=== PATIENT | female | born 1990 | race Caucasian/White ===

== ENCOUNTER 2016-09-18 16:40 | Inpatient (IN) | payer OTHER ==
[~2016-09-18] VITALS: Ht 162.6 cm; Wt 75.4 kg
[~2016-09-18 16:40] MED LIST: ALPR0.25 PO; PANT40TA3 PO
[2016-09-18] MEDS ORDERED: SODIUM CHLORIDE 0.9% 1L BAG IV* STA (16:45)
[2016-09-18] MEDS ORDERED: morphine 4 MG/ML VIAL IV STA ×2 (16:47→18:16)
[2016-09-18] MEDS ORDERED: ONDANSETRON 4 MG INJ IV STA (16:47)
[2016-09-18] MEDS ORDERED: AMPICILLIN/SULB 3 GM/NS (PMX) 100 ML IVPB ONE (17:00)
[2016-09-18] MEDS ORDERED: ACETAMINOPHEN 325 MG TAB PO ONE (17:00)
[2016-09-18 17:11] LABS: BASOPHILS % 0.4 % (0.0-2.0); EOSINOPHILS % 0.2 % (0.0-7.0); HEMATOCRIT 41.7 % (37.0-47.0); HEMOGLOBIN 14.3 g/dl (12.0-16.0); LYMPHOCYTES # 0.6 10^3/ul (0.8-2.9); LYMPHOCYTES % 9.3 % (15.0-51.0); MEAN CORPUSCULAR HEMOGLOBIN 31.5 pg (29.0-33.0); MEAN CORPUSCULAR HGB CONC 34.2 g/dl (32.0-37.0); MEAN CORPUSCULAR VOLUME 91.9 fl (82.0-101.0); MONOCYTE # 0.7 10^3/ul (0.3-0.9); MONOCYTES % 11.1 % (0.0-11.0); NEUTROPHIL # 5.2 10^3/ul (1.6-7.5); PLATELET COUNT 203 10^3/UL (140-440); RED BLOOD COUNT 4.53 10^6/ul (4.20-5.40); RED CELL DISTRIBUTION WIDTH 13.3 % (11.5-14.5); UNCORRECTED WBC 6.6 10^3/ul (4.8-10.8); WHITE BLOOD COUNT 6.6 10^3/ul (4.8-10.8)
[2016-09-18 17:13] LABS: CONDITION 1
[2016-09-18 17:20] LABS: INR 1.08; PARTIAL THROMBOPLASTIN TIME 29.2 Sec (25.0-35.0); PT RATIO 1.1
[2016-09-18 17:23] LABS: ALBUMIN 4.7 g/dl (3.3-4.9); CHLORIDE 105 mmol/L (97-110); POTASSIUM 3.7 mmol/L (3.5-5.1); SODIUM 142 mmol/L (135-144)
[2016-09-18 17:25] LABS: CREATININE 0.69 mg/dl (0.44-1.00)
[2016-09-18 17:26] LABS: ALANINE AMINOTRANSFERASE 57 IU/L (13-69); ALKALINE PHOSPHATASE 61 IU/L (42-121); ANION GAP 20 (8-16); ASPARTATE AMINO TRANSFERASE 33 IU/L (15-46); BILIRUBIN,INDIRECT 0.5 mg/dl (0-1.1); BILIRUBIN,TOTAL 0.5 mg/dl (0.2-1.3); BLOOD UREA NITROGEN 6 mg/dl (7-20); CALCIUM 9.6 mg/dl (8.4-10.2); CARBON DIOXIDE 21 mmol/L (21-31); GLUCOSE 85 mg/dl (70-220); TOTAL PROTEIN 8.3 g/dl (6.1-8.1)
[2016-09-18 17:32] LABS: ADD UMIC YES; URINE BILIRUBIN (Dip) NEGATIVE (NEGATIVE); URINE BLOOD (Dip) TRACE (NEGATIVE); URINE COLOR LT. YELLOW (YELLOW); URINE GLUCOSE (Dip) NEGATIVE (NEGATIVE); URINE KETONES (Dip) 40 (NEGATIVE); URINE LEUKOCYTE ESTERASE (Dip) NEGATIVE (NEGATIVE); URINE NITRITE (Dip) NEGATIVE (NEGATIVE); URINE TOTAL PROTEIN (Dip) NEGATIVE (NEGATIVE); URINE UROBILINOGEN (Dip) 1.0 E.U./dL (0.1-1.0)
--- NOTE | 2016-09-18 17:35 | RADRPT ---
PROCEDURE: XR Chest. CLINICAL INDICATION: Sepsis TECHNIQUE: A single AP view of the chest was obtained. COMPARISON: None. FINDINGS: No focal airspace opacification, pleural effusion or pneumothorax is seen. The cardiomediastinal si lhouette is within normal limits for size. The osseous structures are unremarkable. IMPRESSION: No radiographic evidence of acute cardiopulmonary disease. RPTAT: HH .Krystle Ferguson MD, MD Date Time Electronically viewed and signed by .Krystle Ferguson MD, on 09/18/2016 17:35 .G/
[2016-09-18 17:38] LABS: TROPONIN-I < 0.012 ng/ml (0.00-0.12)
[2016-09-18 17:54] LABS: BACTERIA,URINE RARE; SQUAMOUS EPITHELIAL CELL,UR FEW; URINE RBCS 0-2 /HPF (0)
--- NOTE | 2016-09-18 18:08 | RADRPT ---
PROCEDURE: CT abdomen and pelvis without contrast. CLINICAL INDICATION: Abdominal pain. TECHNIQUE: CT scan of the abdomen and pelvis without contrast was performed on a multislice CT [facility] utilizing axial imaging from the lung bases through the pubis symphysis. The patient was scann ed without intravenous contrast. Sagittal and coronal reformatted images were made. The CTDIvol is 10.55 mGy and the DLP is 525.66 mGycm. COMPARISON: Abdominal ultrasound same date and MR abdomen 07/20/2016 FINDINGS: The lung bases are clear. The heart size is normal. The visualized liver, spleen, pancreas, and patience ateral adrenal glands are normal. The gallbladder is not visualized and correlate with prior cholec ystectomy. The bilateral kidneys are normal. No evidence for hydroureter nephrosis or nephroureterol ithiasis is present. The imaged aorta appears normal. No evidence for ascites or pneumoperitoneum is present. A nonobstructive bowel gas pattern is present. No evidence for diverticulosis, diverticulitis, or a ppendicitis is present. The appendix is normal. The urinary bladder is moderately distended. The uterus and bilateral adnexa appears normal. No pelvic mass, lymphadenopathy, or free fluid is seen. There is no evidence of free air. The surrounding osseous structures are remarkable for a mild grade 1 spondylolisthesis of L4 on L5 w ithout evidence for spondylolysis. IMPRESSION: 1. No evidence for acute intra-abdominal or pelvic pathology. 2. Non-visualized gallbladder 3. Grade 1 spondylolisthesis of L4 and L5 without spondylolysis. RPTAT: HDC .Joann Mccartney MD, Date Time Electronically viewed and signed by .Joann Mccartney MD, MD on 09/18/2016 18:08 .C/
--- NOTE | 2016-09-18 18:09 | RADRPT ---
PROCEDURE: US Abdomen (right upper quadrant). CLINICAL INDICATION: Pain. TECHNIQUE: Multiple real-time longitudinal and transverse images of the right upper quadrant of th e abdomen were acquired utilizing a curved array transducer. Images were reviewed on a high-resoluti on PACS workstation. COMPARISON: CT abdomen 09/18/2016, MRCP 07/20/2016 FINDINGS: The liver is normal in size and echogencity. There is no focal intrahepatic mass.. The gallbladder is not identified. Common bile duct is dilated at 8.26 mm diameter.. Pancreas is obscured by bowel gas. No free fluid is identified. The right kidney measures 9.6. cm in length. There is mild right renal pelvocaliectasis. No mass o r calculus is identified. There is no perinephric fluid collection. IMPRESSION: 1. Status post cholecystectomy. 2. Dilated common bile duct 88 mm, increased from 5.6 mm on the prior MRI of 07/20/2016. 3. Pancreas not visualized due to bowel gas. 4. Mild right renal pelvocaliectasis. RPTAT: HMVK .Marco Ireland MD, Date Time Electronically viewed and signed by .Marco Ireland MD, MD on 09/18/2016 18:09 .K/
[2016-09-18 18:57] VITALS: TEMP 98.3
[2016-09-18] MEDS ORDERED: DOCUSATE SODIUM 100 MG CAP PO PRN (19:00)
[2016-09-18] MEDS ORDERED: NACL 0.9% 3 ML SYG IV SCH (19:00)
[2016-09-18] MEDS ORDERED: ACETAMINOPHEN 650 MG SUPP PR PRN (19:00)
--- NOTE | 2016-09-18 19:05 | HP ---
Date/Time of Note Date/Time of Note DATE: 09/18/16 TIME: 18:55 Assessment/Plan VTE Prophylaxis VTE Prophylaxis Intervention: SCD's Assessment/Plan Assessment/Plan 25 yo female with past medical history of marijuana abuse, bilateral ovarian cyst, PID, GERD, hemorrhoids, with worsening abdominal pain over 1 week duration. 1. Abd pain - most likely due to choledocholithiasis - will admit the patient to med/surg, IV antibiotics, consult surgery/GI, triple phase MRI abdomen, MRCP with possibility of ERCP, pain management, NPO, IV fluids, serial labs 2. GERD. She will be on PPI. 3. Bilateral ovarian cyst. We will obtain a pelvic ultrasound to rule out any acute inflammatory process. 4. Hiatal hernia. Currently patient doesn't have any heartburn or other hernia symptoms. 5. History of hemorrhoids. No present issues. 6. Marijuana abuse. cessation advised 7. Hypernatremia likely secondary to dehydration. Will treat with IV fluids. [place] [facility] [place] prophylaxis: Mario answered all of her questions. as per clinical course. this history and physical took greater then 45 minutes to complete HPI/ROS Admit Date/Time Admit Date/Time 09/18/2016, 6:55 pm Hx of Present Illness 25 yo female with past medical history of marijuana abuse, bilateral ovarian cyst, PID, GERD, hemorrhoids, with worsening abdominal pain over 1 week duration. She states that the pain is in the mid-epigastric region, radiating to the back, 10/10 in nature, associated with > 10 episodes of bilious vomitus and nausea, fevers/chills, pleuritic chest pain, shortness of breath, and fatigue. She has been here multiple times with similar complaints. Otherwise denies any headache, loss of consciousness, diarrhea/constipation or other constitutional symptoms. ED course: unasyn, pain management ROS 14 point review of systems completed, please refer to HPI for any positive findings PMH/Family/Social Past Medical History PID, ovarian cysts, biliary colic Medical History: GERD Past Surgical History Past Surgical Hx: cholecystectomy (questionable) Family History Significant Family History: no pertinent family hx Social History Alcohol Use: none Smoking Status: Never smoker Drug Use: marijuana Exam/Review of Systems Vital Signs Vitals Vital Signs Date Time Temp Pulse Resp B/P Pulse Ox O2 Delivery O2 Flow Rate FiO2 09/18/16 18:15 99.0 85 17 111/64 97 Room Air Exam Exam Gen Flaca: moderate distress 2/2 to abdominal pain, AAOx4 HEENT: NC/AT, PERRLA, EOMI, no pharyngeal erythema, no tonsillar exudates, no lymphadenopathy, no JVD, no carotid bruits NECK: supple, no thyromegaly THORAX: symmetrical, no obvious deformities CV: S1S2, RRR, no M/G/R Lungs: CTAB no W/C/R/R Abd: soft, tenderness to palpation mid-epigastric region, mild guarding, non- distended, normoactive bowel sounds, no HSM EXT: no edema, no ecchymosis, no clubbing, FROM Neuro: CN II-XII grossly intact, no focal deficits Psych: anxious Skin: C/D/I Labs Result Diagram: 09/18/16 1650 09/18/16 1650 Medications Medications Current Medications Sodium Chloride (NS) 1,000 ml @ 75 mls/hr [id number] IV ; Start 09/18/16 at 18:39 Ondansetron HCl (Zofran Inj) 4 mg Q6H PRN IV NAUSEA AND/OR VOMITING; Start at 19:00 Acetaminophen (Tylenol Supp) 650 mg Q6H PRN PA PAIN LEVEL 1-3 OR FEVER; Start 09/18/16 at 19:00 Morphine Sulfate (morphine) 2 mg Q4H PRN IV SEVERE PAIN LEVEL 7-10; Start at 19:00 Docusate Sodium (Colace) 100 mg Q12H PRN PO CONSTIPATION; Start 09/18/16 at 19 :00 Famotidine (Pepcid Iv) 20 mg Q12 IV ; Start 09/18/16 at 21:[address] abd/pelvis IMPRESSION: 1. No evidence for acute intra-abdominal or pelvic pathology. 2. Non-visualized gallbladder 3. Grade 1 spondylolisthesis of L4 and L5 without spondylolysis. Gallbladder US IMPRESSION: 1. Status post cholecystectomy. 2. Dilated common bile duct 88 mm, increased from 5.6 mm on the prior MRI of . 3. Pancreas not visualized due to bowel gas. 4. Mild right renal pelvocaliectasis. CXR IMPRESSION: No radiographic evidence of acute cardiopulmonary disease. BIANKA CASTLE MD Sep 18, 2016 19:05
[2016-09-18] MEDS ORDERED: ONDANSETRON 4 MG INJ IV PRN (19:30)
[2016-09-18] MEDS ORDERED: ACETAMINOPHEN 325 MG TAB PO PRN (19:30)
--- NOTE | 2016-09-18 19:47 | ERA ---
ER Documentation Chief Complaint Date/Time DATE: 09/18/16 TIME: 19:43 Chief Complaint RUQ abdominal pain x 2 days HPI Patient is a 25-year-old female with no medical problems who presents with right -sided abdominal pain and flank pain. The symptoms started 1 week ago and have been coming and going but today they were much worse. She also had fever. She has had nausea but no vomiting. She does have diarrhea. She has had no treatment as of yet today for fever or pain. Upon review of old medical records she did have one previous admission in June for similar. ROS All systems reviewed and are negative except as per history of present illness. Medications Home Meds Discontinued Scripts Alprazolam* (Xanax*) 0.25 Mg Tablet, 0.25 MG PO Q8H Y for ANXIETY, #20 TAB Prov:JUSTICE,NATHANAEL V[employer] 07/22/16 Pantoprazole* (Protonix*) 40 Mg Tablet.dr, 40 MG PO AC BREAKFAST for 30 Days, TAB Prov:JUSTICE,NATHANAEL V[employer] 07/22/16 Allergies Allergies: Coded Allergies: No Known Allergy (Unverified , 09/18/16) PMhx/Soc History of Surgery: Yes (Laproscopic surgery, February) Anesthesia Reaction: No Hx Neurological Disorder: No Hx Respiratory Disorders: No Hx Cardiac Disorders: No Hx Psychiatric Problems: No Hx Miscellaneous Medical Probl: No Hx Alcohol Use: No Hx Substance Use: No Hx Tobacco Use: No Smoking Status: Never smoker FmHx Family History: No diabetes Physical Exam Vitals Vital Signs Date Time Temp Pulse Resp B/P Pulse Ox O2 Delivery O2 Flow Rate FiO2 09/18/16 18:57 98.3 73 18 116/92 98 Nasal Cannula 2.0 09/18/16 18:15 99.0 85 17 111/64 97 Room Air 09/18/16 16:41 102.0 115 20 142/74 100 Physical Exam Const: Moderate distress secondary to pain Head: Atraumatic Eyes: Normal Conjunctiva ENT: Normal External Ears, Nose and Mouth. Neck: Full range of motion..~ No meningismus. Resp: Clear to auscultation bilaterally Cardio: Tachycardic rate without murmur Abd: Soft, right upper quadrant tenderness to palpation without rebound or guarding Skin: No petechiae or rashes Back: No midline or flank tenderness Ext: No cyanosis, or edema Neur: Awake and alert Psych: Normal Mood and Affect Result Diagram: 09/18/16 1650 09/18/16 1650 Results 24 hrs Laboratory Tests Test 09/18/16 16:50 09/18/16 17:00 09/18/16 18:42 Activated Partial Thromboplast Time 29.2Sec Alanine Aminotransferase (ALT/SGPT) 57IU/L Albumin 4.7g/dl Albumin/Globulin Ratio 1.30 Alkaline Phosphatase 61IU/L Anion Gap 20 Aspartate Amino Transf (AST/SGOT) 33IU/L Basophils # 0.010^3/ul Basophils % 0.4% Blood Urea Nitrogen 6mg/dl Calcium Level 9.6mg/dl Carbon Dioxide Level 21mmol/L Chloride Level 105mmol/L Creatinine 0.69mg/dl Direct Bilirubin 0.00mg/dl Eosinophils # 0.010^3/ul Eosinophils % 0.2% Globulin 3.60g/dl Glucose Level 85mg/dl Hematocrit 41.7% Hemoglobin 14.3g/dl INR International Normalized Ratio 1.08 Indirect Bilirubin 0.5mg/dl Lactic Acid Level 1.4mmol/L 0.5mmol/L Lipase 58U/L Lymphocytes # 0.610^3/ul Lymphocytes % 9.3% Mean Corpuscular Hemoglobin 31.5pg Mean Corpuscular Hemoglobin Concent 34.2g/dl Mean Corpuscular Volume 91.9fl Mean Platelet Volume 8.0fl Monocytes # 0.710^3/ul Monocytes % 11.1% Neutrophils # 5.210^3/ul Neutrophils % 79.0% Nucleated Red Blood Cells # 0.010^3/ul Nucleated Red Blood Cells % 0.0/100WBC Platelet Count 76146^3/UL Potassium Level 3.7mmol/L Prothrombin Time 14.0Sec Prothrombin Time Ratio 1.1 Red Blood Count 4.5310^6/ul Red Cell Distribution Width 13.3% Sodium Level 142mmol/L Total Bilirubin 0.5mg/dl Total Protein 8.3g/dl Troponin I < 0.012ng/ml White Blood Count 6.610^3/ul Urine Bacteria RARE Urine Bilirubin NEGATIVE Urine Clarity CLEAR Urine Color LT. YELLOW Urine Glucose NEGATIVE% Urine Hemoglobin TRACE Urine Ketones 40 Urine Leukocyte Esterase NEGATIVE Urine Microscopic RBC 0-2/HPF Urine Microscopic WBC 0-2/HPF Urine Nitrite NEGATIVE Urine Specific [place] 1.020 Urine Squamous Epithelial Cells FEW Urine Total Protein NEGATIVE Urine Urobilinogen 1.0 E.U./dL Urine pH 7.0 Current Medications Medications (Trade) Dose Ordered Sig/Pierce Route PRN Reason Start Time Stop Time Status Last Admin Dose Admin Sodium Chloride 2110 ml 2,110 ml BOLUS OVER 2 HOURS STAT IV* 09/18/16 16:45 09/18/16 16:48 DC 09/18/16 17:02 Ampicillin Sodium/ Sulbactam Sodium (Unasyn 3gm/NS (Pmx)) 100 ml @ 100 mls/hr ONCE ONCE IVPB 09/18/16 17:00 09/18/16 17:59 DC 09/18/16 17:17 Acetaminophen (Tylenol Tab) 650 mg ONCE ONCE PO 09/18/16 17:00 09/18/16 17:01 DC 09/18/16 17:03 Morphine Sulfate (morphine) 4 mg ONCE STAT IV 09/18/16 16:47 09/18/16 16:48 DC 09/18/16 17:03 Ondansetron HCl (Zofran Inj) 4 mg ONCE STAT IV 09/18/16 16:47 09/18/16 16:48 DC 09/18/16 17:03 Morphine Sulfate 4 mg 4 mg ONCE STAT IV 09/18/16 18:16 09/18/16 18:17 DC 09/18/16 18:20 Sodium Chloride (NS) 1,000 ml @ 75 mls/hr [id number] IV 09/18/16 18:39 IV Flush (NS 3 ml) 3 ml PER PROTOCOL IV 09/18/16 19:00 Ondansetron HCl (Zofran Inj) 4 mg Q6H PRN IV NAUSEA AND/OR VOMITING 09/18/16 19:00 Acetaminophen (Tylenol Supp) 650 mg Q6H PRN PA PAIN LEVEL 1-3 OR FEVER 09/18/16 19:00 Morphine Sulfate (morphine) 2 mg Q4H PRN IV SEVERE PAIN LEVEL 7-10 09/18/16 19:00 Docusate Sodium (Colace) 100 mg Q12H PRN PO CONSTIPATION 09/18/16 19:00 Famotidine (Pepcid Iv) 20 mg Q12 IV 09/18/16 21:00 Ondansetron HCl (Zofran Inj) 4 mg BRIDGE ORDER PRN IV NAUSEA AND/OR VOMITING 09/18/16 19:30 09/19/16 19:29 Acetaminophen (Tylenol Tab) 650 mg ER BRIDGE PRN PO MILD PAIN/FEVER 09/18/16 19:30 09/19/16 19:29 Procedures/MDM EKG read by me: Rate/Rhythm: Sinus tachycardia rate of 103 Intervals: Normal Impression: Sinus tachycardia without evidence of ischemia Chest x-ray shows no pneumonia per radiology. Ultrasound shows dilated common bile duct but no gallbladder seen per radiology. CT scan shows no gallbladder or surgical process per radiology. Patient is a 25-year-old female who presents with right upper quadrant abdominal pain and abdominal pain. At this point there is no sign of obvious infection. She does have two SIRS criteria and was given Tylenol and normal saline fluid bolus of 30 ml/kg and now her vital signs have normalized. Her initial lactic acid is normal as is a repeat lactic acid at this point I doubt sepsis. She has had a significant workup in the past for potential cholecystitis including laparoscopy, MRI of the abdomen, and CT scan as well as ultrasound which did not show any gallbladder even though she has not had her gallbladder removed in the past. Given her significant pain I do believe she requires admission for pain control and further evaluation of her fever. Cultures are pending. At this point there are no signs of cystitis or pneumonia. I spoke with Dr. Garnica from the panel team for admission who will admit to a medical surgical bed. I also spoke with Dr. Zamora from surgery he did her laparoscopy but he is out of town and unavailable and therefore I spoke with Dr. Mena the surgeon on-call who is willing to see the patient for further treatment and evaluation. He has recommended MRCP and MRI of the abdomen triple phase which I have relayed to Dr. Garnica. Departure Diagnosis: Primary Impression: SIRS (systemic inflammatory response syndrome) Additional Impressions: Flank pain Abdominal pain Qualified Code: R10.11 - Right upper quadrant abdominal pain Condition: DONTE Ramey MD Sep 18, 2016 19:47
[2016-09-18 20:15] VITALS: BP 107/55; PULSE 91; RESP 18
[2016-09-18] MEDS: SOD CHLORIDE 0.9% 1,000 ML IV SCH (20:53)
[2016-09-18] MEDS: FAMOTIDINE 20 MG INJ IV SCH (20:55)
[2016-09-18] MEDS: morphine 2 MG INJ IV PRN (20:55)
[2016-09-18 21:00] VITALS: Ht 162.6 cm; Wt 75.4 kg
--- NOTE | 2016-09-18 21:49 | CONS ---
Date/Time of Note Date/Time of Note DATE: 09/18/16 TIME: 21:37 Assessment/Plan Assessment/Plan Chief Complaint/Hosp Course Impression and Recommendations: 1. Abd pain - unclear what the etiology is. U/S, CT do not show CBD stone. Also do not show gallbladder but patient adamant that she did not have cholecystectomy. Interestingly, Dr. Zamora did diagnostic laparoscopy and did not see gallbladder. Will need to consider non-GI causes of her abdominal pain such as ovarian cyst, abdominal wall pain. Also will need to consider functional abdominal pain. - f/u triple phase MRI abdomen, MRCP - patient wants ERCP but I explained to pt that we need to do non-invasive tests first before invasive test. I just don't want the same situation as before where Dr. Zamora did surgery for cholecystectomy and turns out there is no gallbladder (which is another odd issue why there is no gallbladder and imaging studies indicate prior cholecystectomy yet pt denies h/o cholecystectomy). 2. GERD. - continue H2 janny. If pain persists, will consider changing to PPI. 3. Bilateral ovarian cyst. - consider Roofing [employer]ator eval and consult - obtain a pelvic ultrasound to rule out any acute inflammatory process. 4. Marijuana abuse. I wonder if it is Marijuana associated cyclic vomiting syndrome. Problems: Consultation Date/Type/Reason Admit Date/Time 09/18/2016, 6:55 pm Type of Consultation: GI Hx of Present Illness 25 yo female with past medical history of marijuana abuse, bilateral ovarian cyst, PID, GERD, hemorrhoids, with worsening abdominal pain over 1 week duration. She states that the pain is in the mid-epigastric and right sided region, radiating to the back and chest, 10/10 in nature, associated with > 10 episodes of bilious vomitus and nausea, fevers/chills, pleuritic chest pain, shortness of breath, and fatigue. She has been here multiple times with similar complaints. In discussing with patient, she had ex lap by Dr. Zamora who did not see a gallbladder. CT and U/S also did not reveal gallbladder. However, pt insist that she did not have a cholecystectomy. She also had EGD and colonoscopy by another GI MD but patient did not like that GI MD at [facility]. Patient want another surgeon and GI specialist to evaluate her. Denies any headache, loss of consciousness, diarrhea/constipation or other constitutional symptoms. All point ROS administered, pertinent positives and negatives in HPI otherwise negative. Past Medical History Medical History: GERD, other (ovarian cyst, PID, hemorrhoids) Past Surgical History Past Surgical Hx: cholecystectomy (questionable) Family History Significant Family History: no pertinent family hx Social History Alcohol Use: none Smoking Status: Never smoker Drug Use: marijuana Exam/Review of Systems Vital Signs Vitals Vital Signs Date Time Temp Pulse Resp B/P Pulse Ox O2 Delivery O2 Flow Rate FiO2 09/18/16 19:49 81 18 122/84 97 Room Air 09/18/16 18:57 98.3 2.0 Exam Constitutional: alert, oriented, well developed Psych: anxiety Head: atraumatic, normocephalic Eyes: EOMI, nl conjunctiva, nl lids, nl sclera ENMT: mucosa pink and moist, nl external ears & nose, nl lips & teeth, nl nasal mucosa & septum Neck: non-tender, supple Respiratory: clear to auscultation, normal air movement Cardiovascular: nl pulses, regular rate and rhythm Gastrointestinal: bowel sounds, non-tender, soft Neurological: nl mental status, nl speech, nl strength Results Result Diagram: 09/18/16164909/18/161649 Results 24 hrs Laboratory Tests Test 09/18/16 16:50 09/18/16 17:00 09/18/16 18:42 Activated Partial Thromboplast Time 29.2 Alanine Aminotransferase (ALT/SGPT) 57 Albumin 4.7 Albumin/Globulin Ratio 1.30 Alkaline Phosphatase 61 Anion Gap 20 H Aspartate Amino Transf (AST/SGOT) 33 Basophils # 0.0 Basophils % 0.4 Blood Urea Nitrogen 6 L Calcium Level 9.6 Carbon Dioxide Level 21 Chloride Level 105 Creatinine 0.69 Direct Bilirubin 0.00 Eosinophils # 0.0 Eosinophils % 0.2 Globulin 3.60 H Glucose Level 85 Hematocrit 41.7 Hemoglobin 14.3 INR International Normalized Ratio 1.08 Indirect Bilirubin 0.5 Lactic Acid Level 1.4 0.5 Lipase 58 Lymphocytes # 0.6 L Lymphocytes % 9.3 L Mean Corpuscular Hemoglobin 31.5 Mean Corpuscular Hemoglobin Concent 34.2 Mean Corpuscular Volume 91.9 Mean Platelet Volume 8.0 Monocytes # 0.7 Monocytes % 11.1 H Neutrophils # 5.2 Neutrophils % 79.0 H Nucleated Red Blood Cells # 0.0 Nucleated Red Blood Cells % 0.0 Platelet Count 203 Potassium Level 3.7 Prothrombin Time 14.0 Prothrombin Time Ratio 1.1 Red Blood Count 4.53 Red Cell Distribution Width 13.3 Sodium Level 142 Total Bilirubin 0.5 Total Protein 8.3 H Troponin I < 0.012 White Blood Count 6.6 Urine Bacteria RARE Urine Bilirubin NEGATIVE Urine Clarity CLEAR Urine Color LT. YELLOW Urine Glucose NEGATIVE Urine Hemoglobin TRACE Urine Ketones 40 Urine Leukocyte Esterase NEGATIVE Urine Microscopic RBC 0-2 Urine Microscopic WBC 0-2 Urine Nitrite NEGATIVE Urine Specific [place] 1.020 Urine Squamous Epithelial Cells FEW Urine Total Protein NEGATIVE Urine Urobilinogen 1.0 E.U./dL Urine pH 7.0 Medications Medications Current Medications Sodium Chloride (NS) 1,000 ml @ 75 mls/hr [id number] IV Last administered on at 20:53; Admin Dose 75 MLS/HR; Start 09/18/16 at 18:39 Ondansetron HCl (Zofran Inj) 4 mg Q6H PRN IV NAUSEA AND/OR VOMITING; Start at 19:00 Acetaminophen (Tylenol Supp) 650 mg Q6H PRN [place] PAIN LEVEL 1-3 OR FEVER; Start 09/18/16 at 19:00 Morphine Sulfate (morphine) 2 mg Q4H PRN IV SEVERE PAIN LEVEL 7-10 Last administered on 09/18/16at 20:55; Admin Dose 2 MG; Start 09/18/16 at 19:00 Docusate Sodium (Colace) 100 mg Q12H PRN PO CONSTIPATION; Start 09/18/16 at 19 :00 Famotidine (Pepcid Iv) 20 mg Q12 IV Last administered on 09/18/16at 20:55; Admin Dose 20 MG; Start 09/18/16 at 21:00 BON GARCIA MD Sep 18, 2016 21:48
[2016-09-19] MEDS: morphine 2 MG INJ IV PRN ×4 (01:49→21:48)
[2016-09-19] MEDS: ONDANSETRON 4 MG INJ IV PRN ×2 (01:49→08:28)
[2016-09-19 05:16] LABS: BASOPHILS % 0.3 % (0.0-2.0); EOSINOPHILS % 0.2 % (0.0-7.0); HEMATOCRIT 35.5 % (37.0-47.0); HEMOGLOBIN 12.5 g/dl (12.0-16.0); LYMPHOCYTES # 0.6 10^3/ul (0.8-2.9); LYMPHOCYTES % 11.5 % (15.0-51.0); MEAN CORPUSCULAR HEMOGLOBIN 32.2 pg (29.0-33.0); MEAN CORPUSCULAR HGB CONC 35.1 g/dl (32.0-37.0); MEAN CORPUSCULAR VOLUME 91.7 fl (82.0-101.0); MEAN PLATELET VOLUME 8.3 fl (7.4-10.4); MONOCYTE # 0.7 10^3/ul (0.3-0.9); MONOCYTES % 14.9 % (0.0-11.0); NEUTROPHIL # 3.6 10^3/ul (1.6-7.5); NEUTROPHILS % 73.1 % (39.0-77.0); PLATELET COUNT 171 10^3/UL (140-440); RED BLOOD COUNT 3.87 10^6/ul (4.20-5.40); RED CELL DISTRIBUTION WIDTH 13.3 % (11.5-14.5); UNCORRECTED WBC 4.9 10^3/ul (4.8-10.8); WHITE BLOOD COUNT 4.9 10^3/ul (4.8-10.8)
[2016-09-19 05:33] LABS: ALBUMIN 3.6 g/dl (3.3-4.9)
[2016-09-19 05:34] LABS: POTASSIUM 3.8 mmol/L (3.5-5.1)
[2016-09-19 05:36] LABS: ALBUMIN/GLOBULIN RATIO 1.2; BILIRUBIN,INDIRECT 0.4 mg/dl (0-1.1); BILIRUBIN,TOTAL 0.4 mg/dl (0.2-1.3); CREATININE 0.57 mg/dl (0.44-1.00); TOTAL PROTEIN 6.6 g/dl (6.1-8.1)
[2016-09-19 05:37] LABS: CALCIUM 8.2 mg/dl (8.4-10.2); MAGNESIUM 1.7 mg/dl (1.7-2.5)
[2016-09-19 06:38] LABS: CONDITION 1
[2016-09-19] MEDS: SOD CHLORIDE 0.9% 1,000 ML IV SCH ×2 (07:44→10:17)
[2016-09-19 07:52] VITALS: BP 118/76; RESP 19
[2016-09-19] MEDS: FAMOTIDINE 20 MG INJ IV SCH ×2 (10:14→20:49)
--- NOTE | 2016-09-19 10:55 | PN ---
Date/Time of Note Date/Time of Note DATE: 09/19/16 TIME: 10:51 Assessment/Plan VTE Prophylaxis VTE Prophylaxis Intervention: SCD's Lines/Catheters IV Catheter Type (from [facility]): Peripheral IV Urinary Cath still in place: No Assessment/Plan Assessment/Plan 25 yo female with past medical history of marijuana abuse, bilateral ovarian cyst, PID, GERD, hemorrhoids, with worsening abdominal pain over 1 week duration. 1. Abd pain - most likely due to choledocholithiasis - appreciate consult surgery/GI, triple phase MRI abdomen, MRCP with possibility of ERCP, pain management, NPO, IV fluids, serial labs, reglan 2. GERD. She will be on PPI. 3. Bilateral ovarian cyst. We will obtain a pelvic ultrasound to rule out any acute inflammatory process. 4. Hiatal hernia. Currently patient doesn't have any heartburn or other hernia symptoms. 5. History of hemorrhoids. No present issues. 6. Marijuana abuse. cessation advised 7. Hypernatremia likely secondary to dehydration. Will treat with IV fluids. DVT prophylaxis: SCDs PUD prophylaxis: Pepcid dispo - as per clinical course. MRI triple phase/MRCP needed. f/u recs this progress note took greater than 40 minutes to complete Subjective 24 Hr Interval Summary Free Text/Dictation Patient admitted overnight for having acute abdominal pain. Has worsening nausea , not relieved by zofran. No fevers or chills. Spoke to the patient about the care plan. 20 minutes spent. Exam/Review of Systems Vital Signs Vitals Vital Signs Date Time Temp Pulse Resp B/P Pulse Ox O2 Delivery O2 Flow Rate FiO2 09/19/16 07:52 98.5 56 19 118/76 95 09/18/16 20:15 Room Air 09/18/16 18:57 2.0 Intake and Output 09/18/16 09/18/16 09/19/16 15:00 23:00 07:00 Intake Total 675 ml Balance 675 ml Exam Gen Flaca: moderate distress 2/2 to abdominal pain and nausea, AAOx4 HEENT: NC/AT, PERRLA, EOMI, no pharyngeal erythema, no tonsillar exudates, no lymphadenopathy, no JVD, no carotid bruits NECK: supple, no thyromegaly THORAX: symmetrical, no obvious deformities CV: S1S2, RRR, no M/G/R Lungs: CTAB no W/C/R/R Abd: soft, tenderness to palpation mid-epigastric region, mild guarding, non- distended, normoactive bowel sounds, no HSM EXT: no edema, no ecchymosis, no clubbing, FROM Neuro: CN II-XII grossly intact, no focal deficits Psych: sad Skin: C/D/I Results Result Diagram: 09/19/16 0424 09/19/16 0424 Results 24 hrs Laboratory Tests Test 09/18/16 16:50 09/18/16 17:00 09/18/16 18:42 09/18/16 20:50 Activated Partial Thromboplast Time 29.2 Alanine Aminotransferase (ALT/SGPT) 57 Albumin 4.7 Albumin/Globulin Ratio 1.30 Alkaline Phosphatase 61 Anion Gap 20 H Aspartate Amino Transf (AST/SGOT) 33 Basophils # 0.0 Basophils % 0.4 Blood Urea Nitrogen 6 L Calcium Level 9.6 Carbon Dioxide Level 21 Chloride Level 105 Creatinine 0.69 Direct Bilirubin 0.00 Eosinophils # 0.0 Eosinophils % 0.2 Globulin 3.60 H Glucose Level 85 Hematocrit 41.7 Hemoglobin 14.3 INR International Normalized Ratio 1.08 Indirect Bilirubin 0.5 Lactic Acid Level 1.4 0.5 0.7 Lipase 58 Lymphocytes # 0.6 L Lymphocytes % 9.3 L Mean Corpuscular Hemoglobin 31.5 Mean Corpuscular Hemoglobin Concent 34.2 Mean Corpuscular Volume 91.9 Mean Platelet Volume 8.0 Monocytes # 0.7 Monocytes % 11.1 H Neutrophils # 5.2 Neutrophils % 79.0 H Nucleated Red Blood Cells # 0.0 Nucleated Red Blood Cells % 0.0 Platelet Count 203 Potassium Level 3.7 Prothrombin Time 14.0 Prothrombin Time Ratio 1.1 Red Blood Count 4.53 Red Cell Distribution Width 13.3 Sodium Level 142 Total Bilirubin 0.5 Total Protein 8.3 H Troponin I < 0.012 White Blood Count 6.6 Urine Bacteria RARE Urine Bilirubin NEGATIVE Urine Clarity CLEAR Urine Color LT. YELLOW Urine Glucose NEGATIVE Urine Hemoglobin TRACE Urine Ketones 40 Urine Leukocyte Esterase NEGATIVE Urine Microscopic RBC 0-2 Urine Microscopic WBC 0-2 Urine Nitrite NEGATIVE Urine Specific [place] 1.020 Urine Squamous Epithelial Cells FEW Urine Total Protein NEGATIVE Urine Urobilinogen 1.0 E.U./dL Urine pH 7.0 Test 1/1/17 04:24 Alanine Aminotransferase (ALT/SGPT) 336 H Albumin 3.6 # Albumin/Globulin Ratio 1.20 Alkaline Phosphatase 103 # Anion Gap 17 H Aspartate Amino Transf (AST/SGOT) 342 H Basophils # 0.0 Basophils % 0.3 Blood Urea Nitrogen 4 L Calcium Level 8.2 L Carbon Dioxide Level 20 L Chloride Level 107 Creatinine 0.57 Direct Bilirubin 0.00 Eosinophils # 0.0 Eosinophils % 0.2 Globulin 3.00 Glucose Level 79 Hematocrit 35.5 L Hemoglobin 12.5 Indirect Bilirubin 0.4 Lymphocytes # 0.6 L Lymphocytes % 11.5 L Magnesium Level 1.7 Mean Corpuscular Hemoglobin 32.2 Mean Corpuscular Hemoglobin Concent 35.1 Mean Corpuscular Volume 91.7 Mean Platelet Volume 8.3 Monocytes # 0.7 Monocytes % 14.9 H Neutrophils # 3.6 Neutrophils % 73.1 Nucleated Red Blood Cells # 0.0 Nucleated Red Blood Cells % 0.0 Platelet Count 171 Potassium Level 3.8 Red Blood Count 3.87 L Red Cell Distribution Width 13.3 Sodium Level 140 Total Bilirubin 0.4 Total Protein 6.6 # White Blood Count 4.9 # Medications Medications Current Medications Sodium Chloride (NS) 1,000 ml @ 75 mls/hr [id number] IV Last administered on 10:17; Admin Dose 75 MLS/HR; Start 09/18/16 at 18:39 Ondansetron HCl (Zofran Inj) 4 mg Q6H PRN IV NAUSEA AND/OR VOMITING Last administered on 09/19/16 08:28; Admin Dose 4 MG; Start 09/18/16 at 19:00 Acetaminophen (Tylenol Supp) 650 mg Q6H PRN [place] PAIN LEVEL 1-3 OR FEVER; Start 09/18/16 at 19:00 Morphine Sulfate (morphine) 2 mg Q4H PRN IV SEVERE PAIN LEVEL 7-10 Last administered on 09/19/16 07:38; Admin Dose 2 MG; Start 09/18/16 at 19:00 Docusate Sodium (Colace) 100 mg Q12H PRN PO CONSTIPATION; Start 09/18/16 at 19 :00 Famotidine (Pepcid Iv) 20 mg Q12 IV Last administered on 09/19/16 10:14; Admin Dose 20 MG; Start 09/18/16 at 21:00 BIANKA CASTLE MD Sep 19, 2016 10:55
[2016-09-19] MEDS ORDERED: METOCLOPRAMIDE 10 MG INJ IV PRN (11:00)
[2016-09-19 11:56] LABS: HAAIG REFLEX REFLEX FILED
[2016-09-19 13:36] LABS: HEPATITIS B CORE ANTIBODY NEGATIVE (NEGATIVE)
--- NOTE | 2016-09-19 17:38 | CONS ---
Date/Time of Note Date/Time of Note DATE: 09/19/16 TIME: 17:34 Assessment/Plan Assessment/Plan Chief Complaint/Hosp Course Impression and Recommendations: 1. Abd pain - improving as she feels hungry and wants to eat. U/S, CT do not show CBD stone. Also do not show gallbladder but patient adamant that she did not have cholecystectomy. Interestingly, Dr. Zamora did diagnostic laparoscopy and did not see gallbladder. Will need to consider non-GI causes of her abdominal pain such as ovarian cyst, abdominal wall pain. Also will need to consider functional abdominal pain. - f/u triple phase MRI abdomen, MRCP - patient wants ERCP but I explained to pt that we need to do non-invasive tests first before invasive test. I just don't want the same situation as before where Dr. Zamora did surgery for cholecystectomy and turns out there is no gallbladder (which is another odd issue why there is no gallbladder and imaging studies indicate prior cholecystectomy yet pt denies h/o cholecystectomy). - advance diet to clears. 2. GERD. - continue H2 janny. If pain persists, will consider changing to PPI. 3. Bilateral ovarian cyst. - consider Cut Off Tender Glass eval and consult - obtain a pelvic ultrasound to rule out any acute inflammatory process. 4. Marijuana abuse. I wonder if it is Marijuana associated cyclic vomiting syndrome. Problems: Consultation Date/Type/Reason Admit Date/Time Sep 18, 2016 at 19:02 Initial Consult Date Type of Consultation: GI 24 HR Interval Summary Free Text/Dictation still awaiting MRCP and triple phase CT. Nausea and pain improves with morphine. She feels hungry. Constitutional: improved Exam/Review of Systems Vital Signs Vitals Vital Signs Date Time Temp Pulse Resp B/P Pulse Ox O2 Delivery O2 Flow Rate FiO2 09/19/16 07:52 98.5 56 19 118/76 95 09/18/16 20:15 Room Air 09/18/16 18:57 2.0 Intake and Output 09/18/16 09/18/16 09/19/16 15:00 23:00 07:00 Intake Total 675 ml Balance 675 ml Exam Constitutional: alert, oriented, well developed Psych: nl mood/affect, no complaints Head: atraumatic, normocephalic Eyes: EOMI, nl conjunctiva, nl lids, nl sclera ENMT: mucosa pink and moist, nl external ears & nose, nl lips & teeth, nl nasal mucosa & septum Neck: non-tender, supple Respiratory: clear to auscultation, normal air movement Cardiovascular: nl pulses, regular rate and rhythm Gastrointestinal: bowel sounds, nl liver, spleen, soft, tender (diffusely, no R /G) Results Result Diagram: 09/19/16 0424 09/19/16 0424 Results 24 hrs Laboratory Tests Test 09/18/16 18:42 09/18/16 20:50 09/19/16 04:24 09/19/16 11:33 Lactic Acid Level 0.5 0.7 Alanine Aminotransferase (ALT/SGPT) 336 H Albumin 3.6 # Albumin/Globulin Ratio 1.20 Alkaline Phosphatase 103 # Anion Gap 17 H Aspartate Amino Transf (AST/SGOT) 342 H Basophils # 0.0 Basophils % 0.3 Blood Urea Nitrogen 4 L Calcium Level 8.2 L Carbon Dioxide Level 20 L Chloride Level 107 Creatinine 0.57 Direct Bilirubin 0.00 Eosinophils # 0.0 Eosinophils % 0.2 Globulin 3.00 Glucose Level 79 Hematocrit 35.5 L Hemoglobin 12.5 Indirect Bilirubin 0.4 Lymphocytes # 0.6 L Lymphocytes % 11.5 L Magnesium Level 1.7 Mean Corpuscular Hemoglobin 32.2 Mean Corpuscular Hemoglobin Concent 35.1 Mean Corpuscular Volume 91.7 Mean Platelet Volume 8.3 Monocytes # 0.7 Monocytes % 14.9 H Neutrophils # 3.6 Neutrophils % 73.1 Nucleated Red Blood Cells # 0.0 Nucleated Red Blood Cells % 0.0 Platelet Count 171 Potassium Level 3.8 Red Blood Count 3.87 L Red Cell Distribution Width 13.3 Sodium Level 140 Total Bilirubin 0.4 Total Protein 6.6 # White Blood Count 4.9 # Hepatitis B Core Total Antibody NEGATIVE Hepatitis B Surface Antigen NEGATIVE Hepatitis C Antibody NEGATIVE Medications Medications Current Medications Sodium Chloride (NS) 1,000 ml @ 75 mls/hr [id number] IV Last administered on 10:17; Admin Dose 75 MLS/HR; Start 09/18/16 at 18:39 Ondansetron HCl (Zofran Inj) 4 mg Q6H PRN IV NAUSEA AND/OR VOMITING Last administered on 09/19/16 08:28; Admin Dose 4 MG; Start 09/18/16 at 19:00 Acetaminophen (Tylenol Supp) 650 mg Q6H PRN [place] PAIN LEVEL 1-3 OR FEVER; Start 09/18/16 at 19:00 Morphine Sulfate (morphine) 2 mg Q4H PRN IV SEVERE PAIN LEVEL 7-10 Last administered on 09/19/16 15:58; Admin Dose 2 MG; Start 09/18/16 at 19:00 Docusate Sodium (Colace) 100 mg Q12H PRN PO CONSTIPATION; Start 09/18/16 at 19 :00 Famotidine (Pepcid Iv) 20 mg Q12 IV Last administered on 09/19/16 10:14; Admin Dose 20 MG; Start 09/18/16 at 21:00 Metoclopramide HCl (Reglan) 10 mg Q6H PRN IV nausea; Start 09/19/16 at 11:00 BON GARCIA MD Sep 19, 2016 17:38
--- NOTE | 2016-09-19 18:11 | CONS ---
[facility] INITIAL INPATIENT CONSULTATION NOTE PLACE OF SERVICE: [facility], second floor, Mindy Bowman 09/2016. DATE OF ADMISSION: 09/18/2016 DATE OF CONSULTATION: 09/19/2016 ASSESSMENT AND PLAN: A very pleasant 25-year-old young lady with some co- morbid issues including BMI 28.5 as well as nightly use of marijuana, who has been plagued by abdominal symptoms since 10/2015. 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 I very carefully reviewed the MRCP from 07/2016 as well as her current ultrasound and CT scan that was done on 09/18/2016, and I agree that we do not see an obvious structure that we can call gallbladder. We are awaiting an MRI of the liver with contrast as well as MRCP to further image this area. I certainly do not see any indication for surgical intervention, but the patient may require an ERCP for further delineation of her symptoms. If no intervenable etiology is found, then we can continue aggressively counseling the patient regarding cessation of marijuana use since this substance can certainly lead to cyclic vomiting syndrome. It does not, however, explain the patient's temperature and for this reason, we should stay aggressive in terms of the workup. I explained all of this to the patient and her , who appear to understand and agree with the plan. With the above assessment, I recommend the followin. MRCP as well as a liver-dedicated triple phase MRI of the abdomen. 2. Agree with consultation with gastroenterology. 3. Consideration for ERCP if indicated. 4. Continue treating symptoms. 5. Strong counseling regarding cessation of marijuana use. 6. Keep in-house. 7. I will continue to follow the patient along with you closely. Thank you again for allowing us to participate in the care of this very pleasant lady and her wonderful family. If there are any questions, please feel free to call me at [phone]. TOTAL VISIT TIME: 60 minutes of which more than half was spent in [id number] discussion with the patient, discussions with her , as well as coordination of care between multiple physicians and providers. HISTORY OF PRESENT ILLNESS: The patient is a very pleasant 25-year-old young lady with co-morbid issues of BMI of 28.5, marijuana use on a daily basis, prior history of attempt at laparoscopic cholecystectomy summer with an interesting finding of absent gallbladder versus intrahepatic gallbladder, and further workup with MRCP that was done 07/2016, again showing lack of a gallbladder, who was admitted with abdominal pain and nausea and vomiting. Patient describes her symptoms starting in October 2015 when she was diagnosed with gallstone disease at [facility] and then another evaluation at [facility] again confirmed presence of gallstone disease. She was taken to the operating room in the summer as mentioned above, but no gallbladder was found, and the operation was aborted. She has had ongoing issues with nausea and vomiting and multiple visits to the emergency room and the hospital in the [facility] without obvious alleviating interventions. Similar issues have been going on over the last few days, and for this reason, she was readmitted to the hospital. No blood in the stool or urine. No blood in the emesis. The patient does have recurrent chest pains as well. PAST MEDICAL HISTORY: 1. BMI 28.5. 2. Marijuana abuse with a nightly intake of substance. 3. Bilateral ovarian cyst. 4. History of PID. 5. History of gastroesophageal reflux disease. 6. History of hemorrhoids. 7. Hiatal hernia. 8. Chronic diarrhea. PAST SURGICAL HISTORY: Status post aborted laparoscopic exploration with finding of lack of gallbladder. ALLERGIES: NO KNOWN DRUG ALLERGIES. HOME MEDICATIONS: None reported. SOCIAL HISTORY: The patient reports smoking marijuana on a nightly basis. No significant tobacco smoking noted. Occasional alcohol reported. No intravenous drug use. FAMILY HISTORY: No history of major medical, surgical, or malignant issues noted in the family as reported by the patient or in her chart. REVIEW OF SYSTEMS: Other than the above-mentioned, there are no other pertinent positives or pertinent negatives in a complete 14-point review of systems. PHYSICAL EXAMINATION: GENERAL: The patient appears to be a very pleasant lady of descent, appearing stated age, sitting in her bed comfortably, but just recently having had an episode of emesis. VITAL SIGNS: Appear to be stable, but she had a temperature recorded as high as 102 degrees Fahrenheit approximately 4:40 p.m. on 09/18/2016. Rest of her vital signs are stable. HEENT: Normocephalic and atraumatic. Extraocular muscles and hearing are grossly intact bilaterally and symmetrically. Sclerae are nonicteric. Oral cavity is clear; oral mucosa appear to be pink and moist. Dentition: fair. NECK: Supple. There is no lymphadenopathy or JVD. There is no submental, submandibular or supraclavicular lymphadenopathy. CHEST: Rises symmetrically with each breath; patient is breathing comfortably. There are no audible wheezes, rales or rhonchi on the gross exam. HEART: Pulse is regular and palpable on the right wrist. Capillary refill is normal. Carotid pulses are palpable bilaterally and symmetrically in the neck. EXTREMITIES: Lower extremities contain no pitting edema around the ankles bilaterally and symmetrically. ABDOMEN: Notable for tenderness to palpation in the right upper quadrant. Abdomen is otherwise soft and nondistended. There is no organomegaly or caput medusae. No evidence of ascites or engorged subcutaneous veins. SKIN: Appears to be pink and feels warm to touch. NEUROLOGIC: Awake, alert, and follows commands appropriately. LABORATORY DATA: CBC was normal with platelet count of 171. Electrolytes showed a CO2 of 20, creatinine 0.57, normal lactic acid, normal lipase and slight elevation in AST and ALT in the 340 range. Otherwise, normal bilirubin and alkaline phosphatase. INR 1.08. Urinalysis was negative. Urine culture was no growth after 24 hours. IMAGING: Patient had an abdominal and pelvic CT, a chest x-ray, and a gallbladder ultrasound, all of which point to lack of obvious structure that could be called gallbladder. The ultrasound report states evidence of cholecystectomy and dilated common bile duct to 8 mm, compared to 5.6 mm on prior MRI on 07/20/2016. Dictated By: DONALD CALDERA/TERRY Conf#: [id number] DID#: [id number]
--- NOTE | 2016-09-19 19:18 | RADRPT ---
PROCEDURE: MRCP. CLINICAL INDICATION: Right flank pain. TECHNIQUE: MRCP was performed. Patient was examined without contrast. 3-D coronal rotating MIP i mages of the biliary tree are available for review. COMPARISON: CT, 09/18/2016 FINDINGS: The gallbladder is surgically absent. No intra or extrahepatic biliary dilatation is identified. N o common duct stone, stricture or filling defect is seen. Pancreatic duct is normal in caliber. Liver and pancreas are unremarkable. Splenomegaly is noted measuring 13.4 cm. Adrenal glands and k idneys are unremarkable. No obstructive uropathy is identified. The stomach is partially collapsed , but appears grossly unremarkable. There is no abdominal aortic aneurysm. No retroperitoneal or elisa hepatis lymphadenopathy is ident ified. There is no bowel obstruction, abscess or ascites. The surrounding osseous structures are u nremarkable. No focal osseous lesion is seen. IMPRESSION: 1. Gallbladder is surgically absent. 2. No biliary dilatation or choledocholithiasis is seen. 3. There is mild splenomegaly measuring 13.4 cm. RPTAT: QQ .Lewis Banuelos MD, Date Time Electronically viewed and signed by .Lewis Banuelos MD, on 09/19/2016 14:58 .R/
[2016-09-19 19:46] VITALS: BP 124/79; RESP 19
[2016-09-20] MEDS: SOD CHLORIDE 0.9% 1,000 ML IV SCH ×4 (01:49→23:59)
[2016-09-20 06:20] LABS: HEMATOCRIT 33.7 % (37.0-47.0); HEMOGLOBIN 11.8 g/dl (12.0-16.0); MEAN CORPUSCULAR HEMOGLOBIN 32.3 pg (29.0-33.0); MEAN CORPUSCULAR HGB CONC 35.1 g/dl (32.0-37.0); MEAN CORPUSCULAR VOLUME 92.2 fl (82.0-101.0); PLATELET COUNT 151 10^3/UL (140-440); RED BLOOD COUNT 3.66 10^6/ul (4.20-5.40); RED CELL DISTRIBUTION WIDTH 13.3 % (11.5-14.5); UNCORRECTED WBC 3.1 10^3/ul (4.8-10.8); WHITE BLOOD COUNT 3.1 10^3/ul (4.8-10.8)
[2016-09-20 06:31] LABS: CONDITION 1; LH ANALYZER COMMENTS 1; SUSPECT 1
[2016-09-20 06:51] LABS: ALBUMIN 3.4 g/dl (3.3-4.9); POTASSIUM 3.9 mmol/L (3.5-5.1)
[2016-09-20 06:53] LABS: ALBUMIN/GLOBULIN RATIO 1.17; BILIRUBIN,INDIRECT 0.2 mg/dl (0-1.1); BILIRUBIN,TOTAL 0.2 mg/dl (0.2-1.3); CREATININE 0.58 mg/dl (0.44-1.00); TOTAL PROTEIN 6.3 g/dl (6.1-8.1)
[2016-09-20 06:54] LABS: CALCIUM 8.2 mg/dl (8.4-10.2)
[2016-09-20 07:45] VITALS: BP 95/50; RESP 18
[2016-09-20] MEDS: ONDANSETRON 4 MG INJ IV PRN ×2 (08:15→14:00)
[2016-09-20] MEDS: FAMOTIDINE 20 MG INJ IV SCH ×2 (08:15→20:52)
[2016-09-20 09:31] LABS: EOSINOPHILS # 0.1 10^3/ul (0.0-0.5); LYMPHOCYTES # 1.4 10^3/ul (0.8-2.9); MONOCYTE # 0.6 10^3/ul (0.3-0.9); NEUTROPHIL # 0.9 10^3/ul (1.6-7.5); PLATELET ESTIMATE PLT APPEAR ADEQUATE
--- NOTE | 2016-09-20 10:34 | CONS ---
Date/Time of Note Date/Time of Note DATE: 09/20/16 TIME: 10:23 Assessment/Plan Assessment/Plan Chief Complaint/Hosp Course Impression and Recommendations: 1. Abd pain - improving. MRCP, U/S, CT do not show CBD stone. Will need to consider non-GI causes of her abdominal pain such as ovarian cyst, abdominal wall pain. Also will need to consider functional abdominal pain such as cyclic vomiting syndrome. However, above are diagnosis of exclusion. - per family wishes after knowing low pre-test likelihood, wants to proceed with ERCP. I also personally d/w Dr. Mena and he feels ERCP also useful as hopefully the final test to r/o hepatobiliary causes of her abdominal pain. 2. GERD. - continue H2 janny. If pain persists, will consider changing to PPI. 3. Bilateral ovarian cyst. - consider Custodial Worker eval and consult - obtain a pelvic ultrasound to rule out any acute inflammatory process. 4. Marijuana abuse. I wonder if it is Marijuana associated cyclic vomiting syndrome. 5. Family wants extensive ID w/u to r/o infectious causes of her abdominal pain. I defer to primary to see ID consult is indicated. Problems: Consultation Date/Type/Reason Admit Date/Time Sep 18, 2016 at 19:02 Type of Consultation: GI 24 HR Interval Summary Free Text/Dictation patient resting peacefully after Morphine, appears comfortable. Family at bedside and discussed plan with them. Family again very upset with me when I told them that on the MRCP there is no gallbladder or gallstone as they are told by other doctors here that there is CBD stone and a gallbladder. Exam/Review of Systems Vital Signs Vitals Vital Signs Date Time Temp Pulse Resp B/P Pulse Ox O2 Delivery O2 Flow Rate FiO2 09/20/16 07:45 98.5 51 18 95/50 98 09/18/16 20:15 Room Air 09/18/16 18:57 2.0 Intake and Output 09/19/16 09/19/16 09/20/16 15:00 23:00 07:00 Intake Total 300 ml 400 ml 1265 ml Output Total 400 ml Balance 300 ml 0 ml 1265 ml Exam Constitutional: alert, oriented, well developed Head: atraumatic, normocephalic Eyes: EOMI, nl conjunctiva, nl lids, nl sclera ENMT: mucosa pink and moist, nl external ears & nose, nl lips & teeth, nl nasal mucosa & septum Neck: non-tender, supple Respiratory: clear to auscultation, normal air movement Cardiovascular: nl pulses, regular rate and rhythm Gastrointestinal: bowel sounds, soft, tender (diffusely) Results Result Diagram: 09/20/16 0420 09/20/16 0420 Results 24 hrs Laboratory Tests Test 09/19/16 11:33 09/20/16 04:20 Hepatitis B Core Total Antibody NEGATIVE Hepatitis B Surface Antigen NEGATIVE Hepatitis C Antibody NEGATIVE Alanine Aminotransferase (ALT/SGPT) 188 H Albumin 3.4 Albumin/Globulin Ratio 1.17 Alkaline Phosphatase 76 Anion Gap 17 H Aspartate Amino Transf (AST/SGOT) 94 H Band Neutrophils % 2.0 Basophils # Basophils % Blood Urea Nitrogen 6 L Calcium Level 8.2 L Carbon Dioxide Level 19 L Chloride Level 111 H Creatinine 0.58 Direct Bilirubin 0.00 Eosinophils # 0.1 Eosinophils % 3.0 Globulin 2.90 Glucose Level 69 #L Hematocrit 33.7 L Hemoglobin 11.8 L Indirect Bilirubin 0.2 Lymphocytes # 1.4 Lymphocytes % 46.0 Mean Corpuscular Hemoglobin 32.3 Mean Corpuscular Hemoglobin Concent 35.1 Mean Corpuscular Volume 92.2 Mean Platelet Volume 9.0 Monocytes # 0.6 Monocytes % 19.0 H Neutrophils # 0.9 L Neutrophils % 30.0 L Nucleated Red Blood Cells # Nucleated Red Blood Cells % Platelet Count 151 Platelet Estimate PLT APPEAR ADEQUATE Potassium Level 3.9 Red Blood Count 3.66 L Red Cell Distribution Width 13.3 Sodium Level 143 Total Bilirubin 0.2 Total Protein 6.3 White Blood Count 3.1 #L Medications Medications Current Medications Sodium Chloride (NS) 1,000 ml @ 75 mls/hr [id number] IV Last administered on 01:49; Admin Dose 75 MLS/HR; Start 09/18/16 at 18:39 Ondansetron HCl (Zofran Inj) 4 mg Q6H PRN IV NAUSEA AND/OR VOMITING Last administered on 09/20/16 08:15; Admin Dose 4 MG; Start 09/18/16 at 19:00 Acetaminophen (Tylenol Supp) 650 mg Q6H PRN [place] PAIN LEVEL 1-3 OR FEVER; Start 09/18/16 at 19:00 Morphine Sulfate (morphine) 2 mg Q4H PRN IV SEVERE PAIN LEVEL 7-10 Last administered on 09/19/16 21:48; Admin Dose 2 MG; Start 09/18/16 at 19:00 Docusate Sodium (Colace) 100 mg Q12H PRN PO CONSTIPATION; Start 09/18/16 at 19 :00 Famotidine (Pepcid Iv) 20 mg Q12 IV Last administered on 09/20/16 08:15; Admin Dose 20 MG; Start 09/18/16 at 21:00 Metoclopramide HCl (Reglan) 10 mg Q6H PRN IV nausea; Start 09/19/16 at 11:00 BON GARCIA MD Sep 20, 2016 10:33
[2016-09-20] MEDS ORDERED: CEFAZOLIN 1 GM/50 ML (PMX) 50 ML IVPB SCH (12:00)
--- NOTE | 2016-09-20 12:15 | PN ---
Date/Time of Note Date/Time of Note DATE: 09/20/16 TIME: 12:15 Assessment/Plan Lines/Catheters IV Catheter Type (from [facility]): Peripheral IV Razo in Place (from [facility]): No Assessment/Plan Assessment/Plan [facility] Progress Note Date of Service: 09/20/2016 Today's Assessment & Plan: Overall stable and doing well. MRCP was also consistent with prior known data indicating no obvious gallbladder presence and no obvious pathology (e.g. choledocholithiasis). No indication for acute surgical intervention. May benefit from more invasive gastroenterology intervention to obtain more information. Upper endoscopy with ERCP would be helpful to further clarify clinical picture. If no remnant gallbladder is found with ERCP, then aggressive search for medical reasons for the patient's symptoms should be continued. I explained all of this to the patient and her , and I answered all their questions to the best my ability. They appeared to understand and agreed with plans. I also discussed this with gastroenterology (Dr. Delvalle). With above assessment, I've recommended the following for today: 1. Consideration for ERCP (will discuss with Dr. Sauer) 2. Continue current management 3. Aggressive surgical or medical reasons for the patient's symptoms 4. We'll follow with you Thank you again for your great care of this very pleasant young lady and her wonderful family. If there are any questions, please feel free to call me at [phone]. TOTAL VISIT TIME: 20 minutes of which more than half was spent in [id number] discussion with the patient as well as coordination of care between multiple physicians and providers. Disclaimer: Inadvertent spelling and grammatical errors are likely due to EHR/ dictation software use and do not reflect on the quality of delivered patient care. Also, please note that the electronic time recorded on this node does not necessarily reflect the actual time of the visit. Updated Clinical Summary: Very pleasant 25-year-old young lady with some co-morbid issues including BMI 28.5 as well as nightly use of marijuana, who has been plagued by abdominal symptoms since 10/2015. 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 I very carefully reviewed the MRCP from 2015 as well as her current ultrasound and CT scan that was done on 09/18/2016, and I agree that we do not see an obvious structure that we can call gallbladder. We repeated her MRI of the liver with contrast as well as MRCP on 09/19/2016 and again no gallbladder was visualized. Past and present comorbidities: 1. BMI 28.5. 2. Marijuana abuse with a nightly intake of substance. 3. Bilateral ovarian cyst. 4. History of PID. 5. History of gastroesophageal reflux disease. 6. History of hemorrhoids. 7. Hiatal hernia. 8. Chronic diarrhea. 9. Status post aborted laparoscopic exploration with finding of lack of gallbladder. Subjective: No major events or complaints other than ongoing issues with abdominal pain; no sob or cp; + flatus; + BM and normal; + activity Objective: Vitals: See below I's & O's: See below Exam: GENERAL: On exam, the patient was lying in bed and appeared to be comfortable and in no acute distress. Sleeping very restfully when I entered the room and was easily arousable. ABDOMEN: Soft, mildly tender to palpation in the right upper quadrant and nondistended. There are no peritoneal signs or guarding. SKIN: Skin appears to be pink and feels warm to touch. NEUROLOGIC: Patient is awake, alert, and follows commands appropriately. Labs: See below Exam/Review of Systems Vital Signs Vitals Vital Signs Date Time Temp Pulse Resp B/P Pulse Ox O2 Delivery O2 Flow Rate FiO2 09/20/16 07:45 98.5 51 18 95/50 98 09/18/16 20:15 Room Air 09/18/16 18:57 2.0 Intake and Output 09/19/16 09/19/16 09/20/16 15:00 23:00 07:00 Intake Total 300 ml 400 ml 1265 ml Output Total 400 ml Balance 300 ml 0 ml 1265 ml Results Result Diagram: 09/20/16 0420 09/20/16 0420 DONALD FLEMING M.D. Sep 20, 2016 12:15
--- NOTE | 2016-09-20 12:35 | PN ---
Date/Time of Note Date/Time of Note DATE: 09/20/16 TIME: 12:33 Assessment/Plan VTE Prophylaxis VTE Prophylaxis Intervention: other Lines/Catheters IV C[facility] Type ([facility]): Peripheral IV Urinary Cath still in place: No Assessment/Plan Problems: (1) Migraine equivalent syndrome Status: Chronic Comment: On review with the patient and the patient's mother there is a strong family history of migraine syndrome. 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 I suspect that the identification of her having gallbladder disease was more likely representation of her migraine syndrome especially in concordance with usage of marijuana causing cannabis hyperemesis syndrome. She has normally regular transform migraines but also abdominal migraine. She should be initiated on treatment with standard migraine prophylactic therapy. I will give her a single dose of Imitrex and get her started on topiramate and see how she improves. (2) Abdominal pain Status: Acute Comment: As above. Please see the operative note from February Qualifiers: Abdominal location: right upper quadrant Qualified Code: R10.11 - Right upper quadrant abdominal pain Subjective 24 Hr Interval Summary Free Text/Dictation Pleasant 25-year-old woman who is just finished throwing up Constitutional: no complaints Eyes: other (Scintillating scotomata) ENT: no complaints Respiratory: no complaints Cardiovascular: no complaints Gastrointestinal: nausea, vomiting Genitourinary: no complaints Musculoskeletal: no complaints Exam/Review of Systems Vital Signs Vitals Vital Signs Date Time Temp Pulse Resp B/P Pulse Ox O2 Delivery O2 Flow Rate FiO2 09/20/16 07:45 98.5 51 18 95/50 98 09/18/16 20:15 Room Air 09/18/16 18:57 2.0 Intake and Output 09/19/16 09/19/16 09/20/16 15:00 23:00 07:00 Intake Total 300 ml 400 ml 1265 ml Output Total 400 ml Balance 300 ml 0 ml 1265 ml Exam Constitutional: alert, oriented Respiratory: clear to auscultation, normal air movement Cardiovascular: nl pulses, regular rate and rhythm Gastrointestinal: nl liver, spleen, non-tender, soft Results Result Diagram: 09/20/16 0420 09/20/16 0420 Results 24 hrs Laboratory Tests Test 09/20/16 04:20 Alanine Aminotransferase (ALT/SGPT) 188 H Albumin 3.4 Albumin/Globulin Ratio 1.17 Alkaline Phosphatase 76 Anion Gap 17 H Aspartate Amino Transf (AST/SGOT) 94 H Band Neutrophils % 2.0 Basophils # Basophils % Blood Urea Nitrogen 6 L Calcium Level 8.2 L Carbon Dioxide Level 19 L Chloride Level 111 H Creatinine 0.58 Direct Bilirubin 0.00 Eosinophils # 0.1 Eosinophils % 3.0 Globulin 2.90 Glucose Level 69 #L Hematocrit 33.7 L Hemoglobin 11.8 L Indirect Bilirubin 0.2 Lymphocytes # 1.4 Lymphocytes % 46.0 Mean Corpuscular Hemoglobin 32.3 Mean Corpuscular Hemoglobin Concent 35.1 Mean Corpuscular Volume 92.2 Mean Platelet Volume 9.0 Monocytes # 0.6 Monocytes % 19.0 H Neutrophils # 0.9 L Neutrophils % 30.0 L Nucleated Red Blood Cells # Nucleated Red Blood Cells % Platelet Count 151 Platelet Estimate PLT APPEAR ADEQUATE Potassium Level 3.9 Red Blood Count 3.66 L Red Cell Distribution Width 13.3 Sodium Level 143 Total Bilirubin 0.2 Total Protein 6.3 White Blood Count 3.1 #L Medications Medications Current Medications Sodium Chloride (NS) 1,000 ml @ 75 mls/hr [id number] IV Last administered on 01:49; Admin Dose 75 MLS/HR; Start 09/18/16 at 18:39 Ondansetron HCl (Zofran Inj) 4 mg Q6H PRN IV NAUSEA AND/OR VOMITING Last administered on 09/20/16 08:15; Admin Dose 4 MG; Start 09/18/16 at 19:00 Acetaminophen (Tylenol Supp) 650 mg Q6H PRN [place] PAIN LEVEL 1-3 OR FEVER; Start 09/18/16 at 19:00 Morphine Sulfate (morphine) 2 mg Q4H PRN IV SEVERE PAIN LEVEL 7-10 Last administered on 09/19/16 21:48; Admin Dose 2 MG; Start 09/18/16 at 19:00 Docusate Sodium (Colace) 100 mg Q12H PRN PO CONSTIPATION; Start 09/18/16 at 19 :00 Famotidine (Pepcid Iv) 20 mg Q12 IV Last administered on 09/20/16 08:15; Admin Dose 20 MG; Start 09/18/16 at 21:00 Metoclopramide HCl (Reglan) 10 mg Q6H PRN IV nausea; Start 09/19/16 at 11:00 ADAM KELLY MD Sep 20, 2016 12:35
[2016-09-20] MEDS ORDERED: SUMATRIPTAN 50 MG TAB PO ONE (13:00)
[2016-09-20] MEDS: morphine 2 MG INJ IV PRN ×3 (14:00→23:51)
[2016-09-20] MEDS: TOPIRAMATE 25 MG TAB PO SCH ×2 (14:04→20:52)
[2016-09-20 19:43] VITALS: BP 126/93; RESP 20
[2016-09-21] MEDS: morphine 2 MG INJ IV PRN ×4 (03:50→21:01)
[2016-09-21] MEDS: ONDANSETRON 4 MG INJ IV PRN ×3 (03:50→21:07)
[2016-09-21] MEDS: SOD CHLORIDE 0.9% 1,000 ML IV SCH (05:09)
[2016-09-21 05:24] LABS: BASOPHILS % 0.4 % (0.0-2.0); EOSINOPHILS % 0.5 % (0.0-7.0); HEMATOCRIT 33.3 % (37.0-47.0); HEMOGLOBIN 11.6 g/dl (12.0-16.0); LYMPHOCYTES # 1.9 10^3/ul (0.8-2.9); LYMPHOCYTES % 46.4 % (15.0-51.0); MEAN CORPUSCULAR VOLUME 91.5 fl (82.0-101.0); MEAN PLATELET VOLUME 8.5 fl (7.4-10.4); MONOCYTE # 0.6 10^3/ul (0.3-0.9); MONOCYTES % 15.3 % (0.0-11.0); NEUTROPHIL # 1.6 10^3/ul (1.6-7.5); NEUTROPHILS % 37.4 % (39.0-77.0); PLATELET COUNT 163 10^3/UL (140-440); RED BLOOD COUNT 3.64 10^6/ul (4.20-5.40); RED CELL DISTRIBUTION WIDTH 13.2 % (11.5-14.5); UNCORRECTED WBC 4.2 10^3/ul (4.8-10.8); WHITE BLOOD COUNT 4.2 10^3/ul (4.8-10.8)
[2016-09-21 05:27] LABS: INR 1.18; PROTIME 15.1 Sec (12.2-14.2); PT RATIO 1.2
[2016-09-21 05:28] LABS: PARTIAL THROMBOPLASTIN TIME 30.3 Sec (25.0-35.0)
[2016-09-21 05:30] LABS: CONDITION 1; LH ANALYZER COMMENTS 1
[2016-09-21] MEDS ORDERED: CEFAZOLIN 1 GM INJ ONE (07:00)
[2016-09-21 07:32] VITALS: BP 104/59; RESP 16
[2016-09-21] MEDS: TOPIRAMATE 25 MG TAB PO SCH ×2 (08:52→21:01)
[2016-09-21] MEDS: FAMOTIDINE 20 MG INJ IV SCH (08:52)
--- NOTE | 2016-09-21 12:43 | PN ---
Date/Time of Note Date/Time of Note DATE: 09/21/16 TIME: 12:39 Assessment/Plan VTE Prophylaxis VTE Prophylaxis Intervention: SCD's Lines/Catheters IV Catheter Type (from [facility]): Peripheral IV Urinary Cath still in place: No Assessment/Plan Chief Complaint/Hosp Course Assessment/Plan 1. Abd pain -no evidence of choledocholithiasis on MRCP appreciate consult surgery/GI, plan for ERCP today, pain management, NPO, IV fluids, serial labs, reglan 2. GERD. She will be on PPI. 3. Bilateral ovarian cyst. We will obtain a pelvic ultrasound to rule out any acute inflammatory process. 4. Hiatal hernia. Currently patient doesn't have any heartburn or other hernia symptoms. 5. History of hemorrhoids. No present issues. 6. Marijuana abuse. cessation advised 7. Hypernatremia likely secondary to dehydration. Continue IV fluids. We will continue monitor patient closely for recommendation management treatment as clinical course Plan to discharge home tomorrow if cleared by GI Problems: Subjective 24 Hr Interval Summary Free Text/Dictation Upon my evaluation and entering the room patient was asleep without any discomfort patient continues to complain of having abdominal discomfort npo due to upcoming procedure, ERCP Exam/Review of Systems Vital Signs Vitals Vital Signs Date Time Temp Pulse Resp B/P Pulse Ox O2 Delivery O2 Flow Rate FiO2 09/21/16 07:32 97.8 47 16 104/59 97 09/18/16 20:15 Room Air 09/18/16 18:57 2.0 Intake and Output 09/20/16 09/20/16 09/21/16 14:59 22:59 06:59 Intake Total 1800 ml 825 ml Balance 1800 ml 825 ml Exam General: The patient is well-developed, Not in acute distress. HEENT: Atraumatic, normocephalic. The pupils are equal and round . Neck: Supple with full range of motion. Chest: Normal expansion of the thorax during inspiration Lungs: Clear to auscultation bilaterally Heart: Normal S1-S2, Regular rhythm and rate. Abdomen: Soft , minimally tender, nondistended , bowel sounds are present. Extremities: Normal to inspection, no edema no cyanosis Neurologic: Normal mental status,The patient is awake, alert and oriented . Results Result Diagram: 09/21/16 0415 09/20/16 0420 Results 24 hrs Laboratory Tests Test 09/20/16 12:55 09/21/16 04:15 Urine Test NEGATIVE Activated Partial Thromboplast Time 30.3 Basophils # 0.0 Basophils % 0.4 Eosinophils # 0.0 Eosinophils % 0.5 Hematocrit 33.3 L Hemoglobin 11.6 L INR International Normalized Ratio 1.18 Lymphocytes # 1.9 Lymphocytes % 46.4 Mean Corpuscular Hemoglobin 32.0 Mean Corpuscular Hemoglobin Concent 35.0 Mean Corpuscular Volume 91.5 Mean Platelet Volume 8.5 Monocytes # 0.6 Monocytes % 15.3 H Neutrophils # 1.6 Neutrophils % 37.4 L Nucleated Red Blood Cells # 0.0 Nucleated Red Blood Cells % 0.0 Platelet Count 163 Prothrombin Time 15.1 H Prothrombin Time Ratio 1.2 Red Blood Count 3.64 L Red Cell Distribution Width 13.2 White Blood Count 4.2 #L Medications Medications Current Medications Sodium Chloride (NS) 1,000 ml @ 75 mls/hr [id number] IV Last administered on 05:09; Admin Dose 75 MLS/HR; Start 09/18/16 at 18:39 Ondansetron HCl (Zofran Inj) 4 mg Q6H PRN IV NAUSEA AND/OR VOMITING Last administered on 09/21/16 03:50; Admin Dose 4 MG; Start 09/18/16 at 19:00 Acetaminophen (Tylenol Supp) 650 mg Q6H PRN [place] PAIN LEVEL 1-3 OR FEVER; Start 09/18/16 at 19:00 Morphine Sulfate (morphine) 2 mg Q4H PRN IV SEVERE PAIN LEVEL 7-10 Last administered on 09/21/16 08:51; Admin Dose 2 MG; Start 09/18/16 at 19:00 Docusate Sodium (Colace) 100 mg Q12H PRN PO CONSTIPATION; Start 09/18/16 at 19 :00 Famotidine (Pepcid Iv) 20 mg Q12 IV Last administered on 09/21/16 08:52; Admin Dose 20 MG; Start 09/18/16 at 21:00 Metoclopramide HCl (Reglan) 10 mg Q6H PRN IV nausea; Start 09/19/16 at 11:00 Topiramate (Topamax) 25 mg BID PO Last administered on 09/20/16 20:52; Admin Dose 25 MG; Start 09/20/16 at 13:00 ARI LIMA MD Sep 21, 2016 12:43
--- NOTE | 2016-09-21 16:08 | PN ---
Date/Time of Note Date/Time of Note DATE: 09/21/16 TIME: 16:01 Assessment/Plan Lines/Catheters IV Catheter Type (from [facility]): Peripheral IV Razo in Place (from [facility]): No Assessment/Plan Assessment/Plan [facility] Progress Note Date of Service: 09/21/2016 Today's Assessment & Plan: Overall stable and doing well. Awaiting ERCP later today. Further plans afterwards. With above assessment, I've recommended the following for today: 1. ERCP later today 2. Continue current management 3. Aggressive search for medical reasons for the patient's symptoms 4. We'll follow with you Thank you again for your great care of this very pleasant young lady and her wonderful family. If there are any questions, please feel free to call me at . TOTAL VISIT TIME: 20 minutes of which more than half was spent in [id number] discussion with the patient as well as coordination of care between multiple physicians and providers. Disclaimer: Inadvertent spelling and grammatical errors are likely due to EHR/ dictation software use and do not reflect on the quality of delivered patient care. Also, please note that the electronic time recorded on this node does not necessarily reflect the actual time of the visit. Updated Clinical Summary: Very pleasant 25-year-old young lady with some co-morbid issues including BMI 28.5 as well as nightly use of marijuana, who has been plagued by abdominal symptoms since 10/2015. 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 I very carefully reviewed the MRCP from 2015 as well as her current ultrasound and CT scan that was done on 09/18/2016, and I agreed that we do not see an obvious structure that we can call gallbladder. We repeated her MRI of the liver with contrast as well as MRCP on 09/19/2016 and again no gallbladder was visualized. Past and present comorbidities: 1. BMI 28.5. 2. Marijuana abuse with a nightly intake of substance. 3. Bilateral ovarian cyst. 4. History of PID. 5. History of gastroesophageal reflux disease. 6. History of hemorrhoids. 7. Hiatal hernia. 8. Chronic diarrhea. 9. Status post aborted laparoscopic exploration with finding of lack of gallbladder. Subjective: No major events or complaints other than ongoing issues with abdominal pain; no sob or cp; + flatus; + BM and normal; + activity Objective: Vitals: See below I's & O's: See below Exam: GENERAL: On exam, the patient was lying in bed and appeared to be comfortable and in no acute distress. Sleeping very restfully again this am when I entered the room and was easily arousable. ABDOMEN: Soft, mildly tender to palpation in the right upper quadrant and nondistended. There are no peritoneal signs or guarding. SKIN: Skin appears to be pink and feels warm to touch. NEUROLOGIC: Patient is awake, alert, and follows commands appropriately. Labs: See below Exam/Review of Systems Vital Signs Vitals Vital Signs Date Time Temp Pulse Resp B/P Pulse Ox O2 Delivery O2 Flow Rate FiO2 09/21/16 07:32 97.8 47 16 104/59 97 09/18/16 20:15 Room Air 09/18/16 18:57 2.0 Intake and Output 09/20/16 09/20/16 09/21/16 15:00 23:00 07:00 Intake Total 1875 ml 750 ml Balance 1875 ml 750 ml Results Result Diagram: 09/21/16 0415 09/20/16 0420 DONALD FLEMING M.D. Sep 21, 2016 16:07
[2016-09-21] MEDS ORDERED: IOHEXOL 300MG/ML 30 ML BTL ONE (17:23)
[2016-09-21] MEDS ORDERED: CEFAZOLIN 1 GM/50 ML (PMX) 50 ML IVPB ONE (17:23)
[2016-09-21] MEDS ORDERED: INDOMETHACIN 50 MG SUPP PR ONE (17:23)
[2016-09-21] MEDS ORDERED: MIDAZOLAM 1 MG/ML 2 ML INJ ONE (17:32)
[2016-09-21] MEDS ORDERED: SUCCINYLCHOLINE CHLORIDE 100 MG/5 ML SYG IV ONE (17:32)
[2016-09-21] MEDS ORDERED: PROPOFOL 20 ML ONE (17:32)
[2016-09-21] MEDS ORDERED: FAMOTIDINE 20 MG INJ ONE (18:12)
[2016-09-21] MEDS ORDERED: ONDANSETRON 4 MG INJ ONE (18:12)
[2016-09-21 18:31] VITALS: BP 108/66; PULSE 76; RESP 15
[2016-09-21 20:22] VITALS: BP 134/66; RESP 16
--- NOTE | 2016-09-21 22:54 | RADRPT ---
PROCEDURE: Intraoperative imaging for ERCP with fluoroscopy. CLINICAL INDICATION: Right upper quadrant pain. Intraoperative. TECHNIQUE: 2 images of the right upper quadrant of the abdomen were obtained in the operating room with an image intensifier. No radiologist was in attendance. COMPARISON: MRCP dated 09/19/2016. FINDINGS: Endoscope is in position. Contrast was injected into the common bile duct. There is no filling def ect. The pancreatic duct was not injected. IMPRESSION: 1. ERCP as described above. RPTAT: QQ .Rigo Kilgore MD, MD Date Time Electronically viewed and signed by .Rigo Kilgore MD, on 09/21/2016 22:54 .R/
[2016-09-22] MEDS: morphine 2 MG INJ IV PRN ×2 (01:42→05:55)
[2016-09-22 05:44] LABS: ALBUMIN 3.7 g/dl (3.3-4.9)
[2016-09-22 05:45] LABS: BASOPHILS % 0.3 % (0.0-2.0); EOSINOPHILS % 0.6 % (0.0-7.0); HEMATOCRIT 35.1 % (37.0-47.0); HEMOGLOBIN 12.2 g/dl (12.0-16.0); LYMPHOCYTES # 1.6 10^3/ul (0.8-2.9); LYMPHOCYTES % 41.4 % (15.0-51.0); MEAN CORPUSCULAR HEMOGLOBIN 31.8 pg (29.0-33.0); MEAN CORPUSCULAR HGB CONC 34.7 g/dl (32.0-37.0); MEAN CORPUSCULAR VOLUME 91.8 fl (82.0-101.0); MEAN PLATELET VOLUME 8.6 fl (7.4-10.4); MONOCYTE # 0.6 10^3/ul (0.3-0.9); MONOCYTES % 16.1 % (0.0-11.0); NEUTROPHIL # 1.6 10^3/ul (1.6-7.5); NEUTROPHILS % 41.6 % (39.0-77.0); PLATELET COUNT 170 10^3/UL (140-440); POTASSIUM 3.4 mmol/L (3.5-5.1); RED BLOOD COUNT 3.82 10^6/ul (4.20-5.40); RED CELL DISTRIBUTION WIDTH 13.1 % (11.5-14.5); UNCORRECTED WBC 3.8 10^3/ul (4.8-10.8); WHITE BLOOD COUNT 3.8 10^3/ul (4.8-10.8)
[2016-09-22 05:47] LABS: ALBUMIN/GLOBULIN RATIO 1.23; BILIRUBIN,INDIRECT 0.5 mg/dl (0-1.1); BILIRUBIN,TOTAL 0.5 mg/dl (0.2-1.3); CREATININE 0.62 mg/dl (0.44-1.00); TOTAL PROTEIN 6.7 g/dl (6.1-8.1)
[2016-09-22 05:48] LABS: CALCIUM 8.6 mg/dl (8.4-10.2); MAGNESIUM 1.8 mg/dl (1.7-2.5)
[2016-09-22] MEDS ORDERED: PANTOPRAZOLE (EC) 40 MG TAB PO SCH (06:00)
[2016-09-22 06:10] LABS: CONDITION 1; LH ANALYZER COMMENTS 1
[2016-09-22 07:42] VITALS: BP 127/75; RESP 16
[2016-09-22] MEDS: TOPIRAMATE 25 MG TAB PO SCH (08:34)
[2016-09-22] MEDS ORDERED: POTASSIUM CHLORIDE (SR) 20 MEQ TAB PO STA ×2 (11:51→11:52)
[2016-09-22 12:54] LABS: ANA SCREEN NEGATIVE (NEGATIVE)
[2016-09-22 12:56] LABS: ADD UMIC NO; URINE BILIRUBIN (Dip) 1+ (NEGATIVE); URINE BLOOD (Dip) NEGATIVE (NEGATIVE); URINE COLOR LT. YELLOW (YELLOW); URINE GLUCOSE (Dip) NEGATIVE (NEGATIVE); URINE KETONES (Dip) 3+ (NEGATIVE); URINE LEUKOCYTE ESTERASE (Dip) NEGATIVE (NEGATIVE); URINE NITRITE (Dip) NEGATIVE (NEGATIVE); URINE TOTAL PROTEIN (Dip) NEGATIVE (NEGATIVE); URINE UROBILINOGEN (Dip) 4.0 E.U./dL (0.1-1.0)
[2016-09-22] MEDS ORDERED: morphine 2 MG INJ IV PRN (13:05)
[2016-09-22 13:07] LABS: ICTOTEST NEGATIVE (NEGATIVE)
--- NOTE | 2016-09-22 16:01 | PDOCDIS ---
Discharge Instructions CONDITION Patient Condition: Good HOME CARE INSTRUCTIONS: Special Diet: low fat diet FOLLOW UP/APPOINTMENTS Appointments Follow up with PCP and OB/ MAGNETIC TAPE COMPOSER OPERATOR as out-pt ARI LIMA MD Sep 22, 2016 16:01
[2016-09-22] MEDS ORDERED: ONDA4TAB8 PO (16:04)
[2016-09-22] MEDS ORDERED: ACET500C5 PO (16:04)
[2016-09-22] MEDS ORDERED: METO5TAB58 PO (16:04)
[2016-09-22] MEDS ORDERED: PANT20TA2 PO (16:04)
--- NOTE | 2016-09-22 18:09 | DS ---
DATE OF ADMISSION: 09/18/2016 DATE OF DISCHARGE: 09/22/2016 CONSULTING: GI. DISCHARGE DIAGNOSES: 1. Abdominal pain, no evidence of choledocholithiasis on MRCP. The patient is status post ERCP wit h no evidence of stones. 2. Gastroesophageal reflux disease. Proton pump inhibitor. 3. Bilateral ovarian cyst, status post pelvic ultrasound. The patient has been instructed to follo w up with EDUCATION FINANCE PROCESSOR as outpatient. 4. Hiatal hernia. The patient currently does not have any heartburn or hernia symptoms. 5. History of hemorrhoid, no present issues. 6. History of marijuana use. Cessation advised. 7. Hypernatremia, resolved, status post IV fluid. 8. Pain seeking behavior. 9. Episodes of vaginal bleed. The patient has been instructed to follow EDUCATION FINANCE PROCESSOR as an outpatient. No active bleeding at this time, the patient's hemoglobin and hematocrit are stable. LABORATORY: WBC 3.8, hemoglobin 12.2, hematocrit 35.1, platelets 170. Sodium 143, potassium 3.4, c hloride 108, bicarbonate 21, BUN 6, creatinine 0.62, glucose 73, AST 50, ALT 123, alkaline phosphata se 75. Lipase 69. HOSPITAL COURSE: This is a 25-year-old female with a past medical history of marijuana abuse, bilat eral ovarian cysts, PID, GERD, hemorrhoids and cholecystectomy, who presents to [facility] secondary to having abdominal pain. Gallbladder ultrasound was obtained, which showed stat us post cholecystectomy, dilated common bile duct at 8 mm, increased from 5.6 mm. The pancreas is n ot visualized due to gas bowel, mild right renal pelvocaliectasis. Abdominal MRI was obtained which showed gallbladder surgically absent. No biliary dilation or choledocholithiasis is seen. There i s a mild splenomegaly measuring 13.4 cm. Gastroenterology was consulted. The patient was found to have transaminitis upon evaluation, the post-admission with AST 242, ALT 336, lipase was normal at 5 8. The patient was made n.p.o. Stage Director continued to monitor. The patient was taken to GI lab on 09/21/2016 for ERCP, which patient was found to have no biliary leak, common bile duct sto ne. The patient was cleared by ice cream man. The patient was also seen and evaluated by the general surgeon and has been started on a full liquid diet, which she has been tolerating. This mor mil, patient had an episode of vaginal bleeding which has completely resolved spontaneously. The p atient's vitals have been stable with temperature 97.9, pulse 52, respirations 16, blood pressure 12 7/75, oxygen saturation 98%. At this time, patient is medically stable to be discharged home with a close followup with her primary care physician. Also patient will be provided information regardin g followup with EDUCATION FINANCE PROCESSOR as outpatient. Dictated By: ARI LIMA MD PN/NTS Conf#: [id number] DID#: [id number]
[2016-09-22 20:46] LABS: ADD UMIC YES; URINE BILIRUBIN (Dip) 1+ (NEGATIVE); URINE BLOOD (Dip) 3+ (NEGATIVE); URINE COLOR YELLOW (YELLOW); URINE GLUCOSE (Dip) NEGATIVE (NEGATIVE); URINE KETONES (Dip) 3+ (NEGATIVE); URINE LEUKOCYTE ESTERASE (Dip) NEGATIVE (NEGATIVE); URINE NITRITE (Dip) NEGATIVE (NEGATIVE); URINE TOTAL PROTEIN (Dip) TRACE (NEGATIVE); URINE UROBILINOGEN (Dip) 2.0 E.U./dL (0.1-1.0)
[2016-09-22 20:57] LABS: ICTOTEST NEGATIVE (NEGATIVE)
[2016-09-22 20:58] LABS: MUCUS,URINE FEW; SQUAMOUS EPITHELIAL CELL,UR RARE; URINE RBCS >50 /HPF (0)
[2016-09-22 20:59] LABS: BACTERIA,URINE RARE
--- NOTE | 2016-09-22 22:39 | PN ---
Date/Time of Note Date/Time of Note DATE: 09/22/16 TIME: 16:37 Assessment/Plan Lines/Catheters IV Catheter Type (from [facility]): Saline Lock Razo in Place (from [facility]): No Assessment/Plan Assessment/Plan [facility] Progress Note Date of Service: 09/22/2016 Today's Assessment & Plan: Overall stable and doing well. ERCP showed no biliary abnormality and no visualized gallbladder. 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 No indication for surgical intervention. With above assessment, I've recommended the following for today: 1. Cont medical management 2. Will follow from periphery Thank you again for your great care of this very pleasant young lady and her wonderful family. If there are any questions, please feel free to call me at . TOTAL VISIT TIME: 20 minutes of which more than half was spent in [id number] discussion with the patient as well as coordination of care between multiple physicians and providers. Disclaimer: Inadvertent spelling and grammatical errors are likely due to EHR/ dictation software use and do not reflect on the quality of delivered patient care. Also, please note that the electronic time recorded on this node does not necessarily reflect the actual time of the visit. Updated Clinical Summary: Very pleasant 25-year-old young lady with some co-morbid issues including BMI 28.5 as well as nightly use of marijuana, who has been plagued by abdominal symptoms since 10/2015. 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 I very carefully reviewed the MRCP from 2015 as well as her current ultrasound and CT scan that was done on 09/18/2016, and I agreed that we do not see an obvious structure that we can call gallbladder. We repeated her MRI of the liver with contrast as well as MRCP on 09/19/2016 and again no gallbladder was visualized. ERCP normal without GB visualization 09/21/15. Past and present comorbidities: 1. BMI 28.5. 2. Marijuana abuse with a nightly intake of substance. 3. Bilateral ovarian cyst. 4. History of PID. 5. History of gastroesophageal reflux disease. 6. History of hemorrhoids. 7. Hiatal hernia. 8. Chronic diarrhea. 9. Status post aborted laparoscopic exploration with finding of lack of gallbladder. Subjective: No major events or complaints other than ongoing issues with cyclic vomiting; abd pain reportedly improved; no sob or cp; + flatus; + BM and normal; + activity Objective: Vitals: See below I's & O's: See below Exam: GENERAL: On exam, the patient was lying in bed and appeared to be comfortable and in no acute distress. ABDOMEN: Soft, mildly tender to palpation in the right upper quadrant and nondistended. There are no peritoneal signs or guarding. SKIN: Skin appears to be pink and feels warm to touch. NEUROLOGIC: Patient is awake, alert, and follows commands appropriately. Labs: See below Exam/Review of Systems Vital Signs Vitals Vital Signs Date Time Temp Pulse Resp B/P Pulse Ox O2 Delivery O2 Flow Rate FiO2 09/22/16 07:42 97.9 52 16 127/75 98 09/21/16 18:31 Room Air 09/18/16 18:57 2.0 Intake and Output 09/21/16 09/21/16 09/22/16 15:00 23:00 07:00 Intake Total 75 ml 120 ml Output Total 400 ml Balance 75 ml -280 ml Results Result Diagram: 09/22/16 0425 09/22/16 0425 DONALD FLEMING M.D. Sep 22, 2016 22:39
== END 2016-09-22 18:01 | disposition home or self-care (01) | DRG 445 ==
LOC: E/R 16:40 → PP2 19:02
PROVIDERS: ADMIT Student in an Organized Health Care Education/Training Program; ATTEND Student in an Organized Health Care Education/Training Program
PROC: 0FJB8ZZ Inspection of Hepatobiliary Duct, Via Natural or Artificial Opening Endoscopic (ICD-10-PCS; principal; 2016-09-21 15:00)
DX: K83.8 Other specified diseases of biliary tract (principal); E87.0 Hyperosmolality and hypernatremia; K21.9 Gastro-esophageal reflux disease without esophagitis; N83.202 Unspecified ovarian cyst, left side; N83.201 Unspecified ovarian cyst, right side; K44.9 Diaphragmatic hernia without obstruction or gangrene; Z65.8 Other specified problems related to psychosocial circumstances; N93.9 Abnormal uterine and vaginal bleeding, unspecified
CPT/HCPCS: 36415; 71010; 74176; 74181; 74330; 76705; 80053; 81001; 81003; 83605; 83690; 83735; 84484; 84703; 85025; 85610; 85730; 86038; 86255; 86704; 86709; 86803; 87040; 87086; 87340; 93005; 96374; 96375; 96376; A4310; J0295; J0330; J0690; J2250; J2270; J2405; J7030; Q9967

== ENCOUNTER 2019-03-09 08:42 | Emergency (ER) | payer SELFPAY ==
[~2019-03-09] VITALS: Ht 160 cm; Wt 73.6 kg
[~2019-03-09 08:42] MED LIST changes: +ACET500C5 PO; -ALPR0.25 PO; +METO5TAB58 PO; +ONDA4TAB8 PO; +PANT20TA2 PO; -PANT40TA3 PO
[2019-03-09 08:46] VITALS: Ht 160 cm; Wt 73.6 kg
[2019-03-09] MEDS ORDERED: LORAZEPAM 1 MG TAB PO ONE (09:30)
[2019-03-09] MEDS ORDERED: HYDROCODONE/APAP (5/325) TAB PO ONE (09:30)
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
[2019-03-09] MEDS ORDERED: LORA1TAB PO (12:08)
[2019-03-09] MEDS ORDERED: IBUP-1542 PO (12:12)
[2019-03-09 12:26] VITALS: BP 95/53; PULSE 61; RESP 16
== END 2019-03-09 13:37 | disposition home or self-care (01) ==
LOC: FTE 08:42
DX: S49.91XA Unspecified injury of right shoulder and upper arm, initial encounter (principal); S29.001A Unspecified injury of muscle and tendon of front wall of thorax, initial encounter; S69.91XA Unspecified injury of right wrist, hand and finger(s), initial encounter; S69.92XA Unspecified injury of left wrist, hand and finger(s), initial encounter; S49.92XA Unspecified injury of left shoulder and upper arm, initial encounter; S09.90XA Unspecified injury of head, initial encounter; R51 Headache; R07.81 Pleurodynia; Y00.XXXA Assault by blunt object, initial encounter
CPT/HCPCS: 70450; 71045; 71100; 72125; 72131; 81001; 81025